=== PATIENT | female | born 1960 | race Caucasian/White ===

== ENCOUNTER 2019-05-21 14:27 | Emergency (ER) | payer OTHER ==
[~2019-05-21] VITALS: Wt 50.8 kg
[~2019-05-21 14:27] MED LIST: NOVOLOG10 ML IV
== END 2019-05-21 15:15 | disposition home or self-care (01) ==
LOC: ED 14:27
DX: S30.851A Superficial foreign body of abdominal wall, initial encounter (principal); Z91.041 Radiographic dye allergy status; Z88.6 Allergy status to analgesic agent; X58.XXXA Exposure to other specified factors, initial encounter; Y93.89 Activity, other specified; Y92.89 Other specified places as the place of occurrence of the external cause; Y99.8 Other external cause status

== ENCOUNTER 2024-01-30 19:06 | Emergency (ER) | payer OTHER ==
[~2024-01-30] VITALS: Ht 157.4 cm; Wt 47.2 kg
[2024-01-30 19:42] LABS: BASO % 0.6 % (0.0-1.0); EOS % 0.3 % (1.0-4.0); HEMATOCRIT 38.4 % (37.0-47.0); LYMPH # 1.3 10*3/uL (1.3-4.4); LYMPH % 40.6 % (27.0-41.0); MEAN CELL VOLUME 92.8 fl (81.0-99.0); MEAN CORPUSCULAR HGB 30.4 pg (27.0-31.0); MEAN CORPUSCULAR HGB CONC 32.8 g/dl (33.0-37.0); MONO # 0.6 10*3/uL (0.1-1.0); MONO % 16.9 % (3.0-9.0); NEUT # 1.3 10*3/uL (2.3-7.9); NEUT % 41.3 % (47.0-73.0); PLATELET COUNT AUTOMATED 204 10*3/uL (130-400); RED BLOOD COUNT 4.14 10*6/uL (4.10-5.10); RED CELL DISTRI WIDTH 11.8 % (0-14.5); WHITE BLOOD COUNT 3.3 10*3/uL (4.8-10.8)
[2024-01-30 20:01] LABS: ACT PARTIAL THROMBO TIME 32.5 SECONDS (20.0-32.1)
[2024-01-30 20:06] LABS: ALKALINE PHOSPHATASE 91 U/L (46-116); BUN 8 mg/dl (9-23); CHLORIDE 93 mmol/L (98-107); LIPASE 23 U/L (12-53); POTASSIUM 3.8 mmol/L (3.4-5.1); SGPT/ALT 9 U/L (5-49); TOTAL PROTEIN 6.3 gm/dL (6.0-8.0)
[2024-01-30 20:10] LABS: BILIRUBIN Negative (Negative); BLOOD Negative (Negative); CLARITY Clear (Clear); COLOR Yellow (Yellow); GLUCOSE 1+ (Negative); KETONE Trace (Negative); LEUKO ESTERASE Negative (Negative); NITRITE Negative (Negative); SPECIFIC GRAVITY <= 1.005 (1.001-1.030); UROBILINOGEN 0.2 E.U./dl (0.0-1.0)
[2024-01-30] MEDS ORDERED: SODIUM CHLORIDE 0.9% 1,000 ML IV ONE (20:10)
[2024-01-30 20:20] LABS: WBC 0-2 wbc/hpf (0-5)
[2024-01-30] MEDS ORDERED: MIRALAX17 GM PO (21:43)
[2024-01-30] MEDS ORDERED: Polyethylene Glycol 3350 17 GM PACKET PO ONE (21:45)
== END 2024-01-30 22:00 | disposition home or self-care (01) ==
LOC: ED 19:06
PROVIDERS: Nurse Practitioner Family
DX: K59.00 Constipation, unspecified (principal); E86.0 Dehydration; E87.1 Hypo-osmolality and hyponatremia; D72.819 Decreased white blood cell count, unspecified; R42 Dizziness and giddiness; E11.65 Type 2 diabetes mellitus with hyperglycemia; Z96.41 Presence of insulin pump (external) (internal); Z79.4 Long term (current) use of insulin; Z91.041 Radiographic dye allergy status; Z88.6 Allergy status to analgesic agent; Z88.8 Allergy status to other drugs, medicaments and biological substances; Z98.890 Other specified postprocedural states

== ENCOUNTER 2024-10-10 03:24 | Emergency (ER) | payer OTHER ==
[~2024-10-10] VITALS: Wt 50.8 kg
[~2024-10-10 03:24] MED LIST changes: +MIRALAX17 GM PO
[2024-10-10] MEDS ORDERED: COZAAR25 M1 PO (03:43)
[2024-10-10] MEDS ORDERED: ALLEGRA ALLERGY60 M2 PO (03:44)
[2024-10-10] MEDS ORDERED: LORazepam 0.5 MG TAB PO ONE (03:50)
== END 2024-10-10 05:00 | disposition home or self-care (01) ==
LOC: ED 03:24
DX: F41.9 Anxiety disorder, unspecified (principal); I10 Essential (primary) hypertension; E11.9 Type 2 diabetes mellitus without complications; Z79.4 Long term (current) use of insulin; Z91.041 Radiographic dye allergy status; Z88.6 Allergy status to analgesic agent; Z88.8 Allergy status to other drugs, medicaments and biological substances; Z98.890 Other specified postprocedural states